=== PATIENT | female | born 1945 | race Two or more races ===

== ENCOUNTER 2018-06-23 08:10 | Outpatient (CLI) | payer OTHER | END 2018-06-23 08:13 | disposition home or self-care (01) | LOC: RX STUDY 08:10 | DX: K56.699 Other intestinal obstruction unspecified as to partial versus complete obstruction (principal) ==

== ENCOUNTER 2019-05-04 09:04 | Outpatient (CLI) | payer OTHER | END 2019-05-04 10:03 | disposition home or self-care (01) | LOC: NUCLEAR 09:04 | DX: E04.1 Nontoxic single thyroid nodule (principal) | CPT/HCPCS: 78013; A9512 ==